=== PATIENT | male | born 2000 | race Hispanic/Latino ===

== ENCOUNTER 2022-07-08 01:18 | Emergency (ER) | payer OTHER ==
[~2022-07-08] VITALS: Ht 170.2 cm; Wt 107.5 kg
[2022-07-08] MEDS ORDERED: IBUPROFEN 800 MG TAB PO ONE (01:30)
[2022-07-08] MEDS ORDERED: IBUPROFEN 800 MG TAB ONE (01:34)
[2022-07-08 01:57] VITALS: BP 146/74
== END 2022-07-08 02:12 | disposition home or self-care (01) ==
LOC: EDH 01:18
DX: Z02.83 Encounter for blood-alcohol and blood-drug test (principal); M79.10 Myalgia, unspecified site